=== PATIENT | female | born 1930 | race Native Hawaiian/Other Pacific Islander ===

== ENCOUNTER 2017-12-09 13:58 | Inpatient (IN) | payer OTHER | END 2017-12-21 08:00 | disposition still patient (30) | LOC: PAVB 13:58 | PROVIDERS: ADMIT Internal Medicine ==

== ENCOUNTER 2017-12-09 18:40 | Outpatient (CLI) | payer OTHER | END 2017-12-09 20:00 | disposition home or self-care (01) | LOC: LAB 18:40 | DX: Z16.24 Resistance to multiple antibiotics (principal) | CPT/HCPCS: 87081 ==

== ENCOUNTER 2017-12-10 04:46 | Outpatient (CLI) | payer OTHER ==
[2017-12-10 06:08] LABS: PLATELET COUNT 206 K/uL (152-353)
[2017-12-10 06:26] LABS: POTASSIUM 3.9 mmol/L (3.6-5.2)
== END 2017-12-10 18:11 | disposition home or self-care (01) ==
LOC: LABW 04:46
PROVIDERS: Internal Medicine
DX: I10 Essential (primary) hypertension (principal); E11.9 Type 2 diabetes mellitus without complications; M85.88 Other specified disorders of bone density and structure, other site; M81.0 Age-related osteoporosis without current pathological fracture
CPT/HCPCS: 80053; 80061; 82652; 83036; 85027

== ENCOUNTER 2017-12-11 17:17 | Outpatient (CLI) | payer OTHER | END 2017-12-11 22:59 | disposition home or self-care (01) | LOC: LAB 17:17 | DX: R82.99 Other abnormal findings in urine (principal) | CPT/HCPCS: 81000 ==

== ENCOUNTER 2017-12-21 09:00 | Inpatient (IN) | payer OTHER | END 2018-01-20 09:10 | disposition still patient (30) | LOC: PAVB 09:00 | PROVIDERS: ADMIT Internal Medicine ==

== ENCOUNTER 2018-01-12 13:59 | Outpatient (CLI) | payer OTHER | END 2018-01-12 22:51 | disposition home or self-care (01) | LOC: RAD 13:59 | DX: M17.12 Unilateral primary osteoarthritis, left knee (principal) ==

== ENCOUNTER 2018-01-20 10:17 | Inpatient (IN) | payer OTHER | END 2018-02-20 08:57 | disposition still patient (30) | LOC: PAVB 10:17 | PROVIDERS: ADMIT Internal Medicine ==

== ENCOUNTER 2018-02-20 10:16 | Inpatient (IN) | payer OTHER | END 2018-03-22 15:03 | disposition still patient (30) | LOC: PAVB 10:16 | PROVIDERS: ADMIT Internal Medicine ==

== ENCOUNTER 2018-02-25 06:07 | Outpatient (CLI) | payer OTHER | END 2018-02-25 21:40 | disposition home or self-care (01) | LOC: LAB 06:07 | PROVIDERS: Internal Medicine | DX: E11.9 Type 2 diabetes mellitus without complications (principal); E78.00 Pure hypercholesterolemia, unspecified; I10 Essential (primary) hypertension | CPT/HCPCS: 36415; 82465; 83036; 83721 ==

== ENCOUNTER 2018-03-10 17:26 | Outpatient (CLI) | payer OTHER | END 2018-03-10 22:23 | disposition home or self-care (01) | LOC: LAB 17:26 | DX: R30.0 Dysuria (principal) | CPT/HCPCS: 81000 ==

== ENCOUNTER 2018-03-22 15:58 | Inpatient (IN) | payer OTHER | END 2018-04-22 08:00 | disposition still patient (30) | LOC: PAVB 15:58 | PROVIDERS: ADMIT Internal Medicine ==

== ENCOUNTER 2018-04-22 09:00 | Inpatient (IN) | payer OTHER | END 2018-05-23 10:22 | disposition still patient (30) | LOC: PAVB 09:00 | PROVIDERS: ADMIT Internal Medicine ==

== ENCOUNTER 2018-05-23 10:42 | Inpatient (IN) | payer OTHER | END 2018-06-22 09:38 | disposition still patient (30) | LOC: PAVB 10:42 | PROVIDERS: ADMIT Internal Medicine ==

== ENCOUNTER 2018-05-28 05:51 | Outpatient (CLI) | payer OTHER ==
[2018-05-28 08:16] LABS: PLATELET COUNT 251 K/uL (152-353)
[2018-05-28 08:44] LABS: POTASSIUM 4.3 mmol/L (3.6-5.2)
== END 2018-05-28 23:16 | disposition home or self-care (01) ==
LOC: LAB 05:51
PROVIDERS: Internal Medicine
DX: E11.9 Type 2 diabetes mellitus without complications (principal); I10 Essential (primary) hypertension
CPT/HCPCS: 36415; 80053; 82306; 83036; 85027

== ENCOUNTER 2018-06-22 12:32 | Inpatient (IN) | payer OTHER | END 2018-07-23 08:09 | disposition still patient (30) | LOC: PAVB 12:32 → PAVA 07-20 11:06 | PROVIDERS: ADMIT Internal Medicine ==

== ENCOUNTER 2018-07-23 08:17 | Inpatient (IN) | payer OTHER | END 2018-08-22 08:03 | disposition still patient (30) | LOC: PAVA 08:17 | PROVIDERS: ADMIT Internal Medicine ==

== ENCOUNTER 2018-08-22 08:11 | Inpatient (IN) | payer OTHER | END 2018-09-22 10:19 | disposition still patient (30) | LOC: PAVA 08:11 | PROVIDERS: ADMIT Internal Medicine | CPT/HCPCS: 83036 ==

== ENCOUNTER 2018-08-27 03:27 | Outpatient (CLI) | payer OTHER | END 2018-08-27 23:30 | disposition home or self-care (01) | LOC: LAB 03:27 | DX: E11.9 Type 2 diabetes mellitus without complications (principal) ==

== ENCOUNTER 2018-08-28 09:13 | Outpatient (CLI) | payer OTHER | END 2018-08-28 09:15 | disposition short-term general hospital (02) | LOC: AMB 09:13 | DX: S00.83XA Contusion of other part of head, initial encounter (principal); W18.12XA Fall from or off toilet with subsequent striking against object, initial encounter; Y93.89 Activity, other specified; Y92.012 Bathroom of single-family (private) house as the place of occurrence of the external cause | CPT/HCPCS: A0425; A0429 ==

== ENCOUNTER 2018-08-28 09:27 | Emergency (ER) | payer OTHER ==
[~2018-08-28] VITALS: Ht 160 cm; Wt 105.2 kg
[2018-08-28 15:35] LABS: PLATELET COUNT 273 K/uL (152-353)
[2018-08-28 16:52] VITALS: BP 128/78; TEMP 98.3
== END 2018-08-28 16:52 ==
LOC: ED 09:30
PROVIDERS: Emergency Medicine
PROC: 0KQ10ZZ Repair Facial Muscle, Open Approach (ICD-10-PCS; principal; 2018-08-28)
DX: S01.112A Laceration without foreign body of left eyelid and periocular area, initial encounter (principal); S01.111A Laceration without foreign body of right eyelid and periocular area, initial encounter; S00.83XA Contusion of other part of head, initial encounter; M25.551 Pain in right hip; S09.8XXA Other specified injuries of head, initial encounter; W01.198A Fall on same level from slipping, tripping and stumbling with subsequent striking against other object, initial encounter; Y92.121 Bathroom in nursing home as the place of occurrence of the external cause
CPT/HCPCS: 80053; 82550; 84484; 85027; 93005; 99283

== ENCOUNTER 2018-08-31 13:50 | Outpatient (CLI) | payer OTHER | END 2018-08-31 22:51 | disposition home or self-care (01) | LOC: RAD 13:50 | DX: M25.561 Pain in right knee (principal) ==

== ENCOUNTER 2018-09-22 10:31 | Inpatient (IN) | payer OTHER | END 2018-10-23 14:07 | disposition still patient (30) | LOC: PAVA 10:31 | PROVIDERS: ADMIT Internal Medicine ==

== ENCOUNTER 2018-10-23 14:11 | Inpatient (IN) | payer OTHER ==
[~2018-10-23] VITALS: Ht 160 cm; Wt 127.0 kg
== END 2018-11-20 09:13 | disposition still patient (30) ==
LOC: PAVA 14:11
PROVIDERS: ADMIT Internal Medicine
CPT/HCPCS: J0696

== ENCOUNTER 2018-11-01 16:21 | Outpatient (CLI) | payer OTHER | END 2018-11-01 19:04 | disposition home or self-care (01) | LOC: LAB 16:21 | DX: N39.0 Urinary tract infection, site not specified (principal) | CPT/HCPCS: 87077; 87086; 87088; 87186 ==

== ENCOUNTER 2018-11-03 15:10 | Outpatient (CLI) | payer OTHER ==
[~2018-11-03] VITALS: Ht 160 cm; Wt 127.0 kg
[2018-11-03 15:30] VITALS: BP 124/70; TEMP 98.1
[2018-11-03 16:33] VITALS: BP 146/70; TEMP 97.9
== END 2018-11-03 19:23 | disposition home or self-care (01) ==
LOC: INF 15:10
DX: N39.0 Urinary tract infection, site not specified (principal)
CPT/HCPCS: 96365; J0696

== ENCOUNTER 2018-11-05 08:18 | Outpatient (CLI) | payer OTHER ==
[~2018-11-05] VITALS: Ht 160 cm; Wt 127.0 kg
== END 2018-11-05 20:28 | disposition home or self-care (01) ==
LOC: INF 08:18
DX: N39.0 Urinary tract infection, site not specified (principal)
CPT/HCPCS: 96365; J0696

== ENCOUNTER 2018-11-06 09:45 | Outpatient (CLI) | payer OTHER ==
[~2018-11-06] VITALS: Ht 160 cm; Wt 127.0 kg
[2018-11-06 09:35] VITALS: BP 152/74; TEMP 97.6
[2018-11-06 10:37] VITALS: BP 171/92; TEMP 98.6
== END 2018-11-06 10:50 | disposition home or self-care (01) ==
LOC: INF 09:45
DX: N39.0 Urinary tract infection, site not specified (principal)
CPT/HCPCS: 96365; J0696

== ENCOUNTER 2018-11-07 10:59 | Outpatient (CLI) | payer OTHER | END 2018-11-07 19:32 | disposition home or self-care (01) | LOC: INF 10:59 | DX: N39.0 Urinary tract infection, site not specified (principal) | CPT/HCPCS: 96365; J0696 ==

== ENCOUNTER 2018-11-08 13:24 | Outpatient (CLI) | payer OTHER | END 2018-11-08 19:23 | disposition home or self-care (01) | LOC: INF 13:24 | DX: N39.0 Urinary tract infection, site not specified (principal) | CPT/HCPCS: 96365; J0696 ==

== ENCOUNTER 2018-11-09 08:19 | Outpatient (CLI) | payer OTHER ==
[~2018-11-09] VITALS: Ht 160 cm; Wt 127.0 kg
[2018-11-09 09:40] VITALS: BP 157/61; TEMP 98.4
[2018-11-09 09:50] VITALS: BP 127/82; TEMP 98.6
== END 2018-11-09 10:22 | disposition home or self-care (01) ==
LOC: INF 08:19
DX: N39.0 Urinary tract infection, site not specified (principal)
CPT/HCPCS: 96365; J0696

== ENCOUNTER 2018-11-10 09:21 | Outpatient (CLI) | payer OTHER ==
[~2018-11-10] VITALS: Ht 160 cm; Wt 127.0 kg
[2018-11-10 10:10] VITALS: BP 161/64; TEMP 97.7
[2018-11-10 10:38] VITALS: BP 156/72; TEMP 98.5
== END 2018-11-10 11:20 ==
LOC: INF 09:21
DX: N39.0 Urinary tract infection, site not specified (principal)
CPT/HCPCS: 96365; J0696

== ENCOUNTER 2018-11-11 09:36 | Outpatient (CLI) | payer OTHER ==
[~2018-11-11] VITALS: Ht 160 cm; Wt 127.0 kg
[2018-11-11 10:20] VITALS: BP 173/80; TEMP 98.4
== END 2018-11-11 11:38 | disposition home or self-care (01) ==
LOC: INF 09:36
DX: N39.0 Urinary tract infection, site not specified (principal)
CPT/HCPCS: 96365; J0696

== ENCOUNTER 2018-11-12 09:49 | Outpatient (CLI) | payer OTHER ==
[~2018-11-12] VITALS: Ht 160 cm; Wt 127.0 kg
[2018-11-12 10:00] VITALS: BP 107/60; TEMP 98.7
== END 2018-11-12 11:08 | disposition home or self-care (01) ==
LOC: INF 09:49
DX: N39.0 Urinary tract infection, site not specified (principal)
CPT/HCPCS: 96365; J0696

== ENCOUNTER 2018-11-16 03:49 | Outpatient (CLI) | payer OTHER | END 2018-11-16 19:50 | disposition home or self-care (01) | LOC: LAB 03:49 | DX: N39.0 Urinary tract infection, site not specified (principal) | CPT/HCPCS: 81000 ==

== ENCOUNTER 2018-11-20 09:26 | Inpatient (IN) | payer OTHER | END 2018-12-21 07:50 | disposition still patient (30) | LOC: PAVA 09:26 | PROVIDERS: ADMIT Internal Medicine ==

== ENCOUNTER 2018-11-24 08:34 | Outpatient (CLI) | payer OTHER | END 2018-11-24 23:48 | LOC: CT 08:34 | DX: H35.60 Retinal hemorrhage, unspecified eye (principal); R90.82 White matter disease, unspecified ==

== ENCOUNTER 2018-11-26 07:39 | Outpatient (CLI) | payer OTHER ==
[2018-11-26 08:08] LABS: PLATELET COUNT 262 K/uL (152-353)
== END 2018-11-26 19:32 | disposition home or self-care (01) ==
LOC: LAB 07:39
PROVIDERS: Internal Medicine
DX: I10 Essential (primary) hypertension (principal); E11.9 Type 2 diabetes mellitus without complications; M85.80 Other specified disorders of bone density and structure, unspecified site
CPT/HCPCS: 80053; 80061; 82306; 83036; 85027

== ENCOUNTER 2018-12-15 13:58 | Outpatient (CLI) | payer OTHER | END 2018-12-15 21:11 | disposition home or self-care (01) | LOC: LAB 13:58 | DX: R30.0 Dysuria (principal) | CPT/HCPCS: 81000; 87077; 87086; 87088; 87186 ==

== ENCOUNTER 2018-12-19 16:31 | Outpatient (CLI) | payer OTHER | END 2018-12-19 19:54 | disposition home or self-care (01) | LOC: RAD 16:31 | DX: R09.81 Nasal congestion (principal); R05 Cough ==

== ENCOUNTER 2018-12-21 08:18 | Inpatient (IN) | payer OTHER | END 2019-01-20 09:29 | disposition still patient (30) | LOC: PAVA 08:18 | PROVIDERS: ADMIT Internal Medicine ==

== ENCOUNTER 2018-12-21 15:16 | Outpatient (CLI) | payer OTHER | END 2018-12-21 20:31 | disposition home or self-care (01) | LOC: LAB 15:16 | DX: R82.90 Unspecified abnormal findings in urine (principal); R41.0 Disorientation, unspecified | CPT/HCPCS: 81000 ==

== ENCOUNTER 2018-12-21 22:07 | Outpatient (CLI) | payer OTHER ==
[2018-12-21 23:15] LABS: PLATELET COUNT 281 K/uL (152-353)
[2018-12-21 23:24] LABS: POTASSIUM 4.5 mmol/L (3.6-5.2)
== END 2018-12-21 23:30 | disposition home or self-care (01) ==
LOC: LAB 22:07
PROVIDERS: Internal Medicine
DX: R06.02 Shortness of breath (principal); J06.9 Acute upper respiratory infection, unspecified
CPT/HCPCS: 36415; 80048; 83880; 85027

== ENCOUNTER 2018-12-31 03:57 | Outpatient (CLI) | payer OTHER | END 2018-12-31 21:35 | LOC: LAB 03:57 | DX: N39.0 Urinary tract infection, site not specified (principal) | CPT/HCPCS: 81000 ==

== ENCOUNTER 2019-01-20 10:32 | Inpatient (IN) | payer OTHER | END 2019-02-20 08:11 | disposition still patient (30) | LOC: PAVA 10:32 | PROVIDERS: ADMIT Internal Medicine | DX: Z51.89 Encounter for other specified aftercare (principal) ==

== ENCOUNTER 2019-02-20 08:19 | Inpatient (IN) | payer OTHER | END 2019-03-22 08:25 | disposition still patient (30) | LOC: PAVA 08:19 | PROVIDERS: ADMIT Internal Medicine ==

== ENCOUNTER 2019-02-22 04:19 | Outpatient (CLI) | payer OTHER | END 2019-02-22 19:07 | disposition home or self-care (01) | LOC: LAB 04:19 | DX: E11.9 Type 2 diabetes mellitus without complications (principal) | CPT/HCPCS: 36415; 83036 ==

== ENCOUNTER 2019-03-22 08:48 | Inpatient (IN) | payer OTHER | END 2019-04-22 09:02 | disposition still patient (30) | LOC: PAVA 08:48 | PROVIDERS: ADMIT Internal Medicine ==

== ENCOUNTER 2019-04-22 09:13 | Inpatient (IN) | payer OTHER | END 2019-05-23 15:57 | disposition still patient (30) | LOC: PAVA 09:13 | PROVIDERS: ADMIT Internal Medicine ==

== ENCOUNTER 2019-05-23 16:20 | Inpatient (IN) | payer OTHER | END 2019-06-22 08:03 | disposition still patient (30) | LOC: PAVA 16:20 | PROVIDERS: ADMIT Internal Medicine ==

== ENCOUNTER 2019-05-25 06:05 | Outpatient (CLI) | payer OTHER ==
[2019-05-25 06:43] LABS: PLATELET COUNT 281 K/uL (152-353)
[2019-05-25 06:57] LABS: POTASSIUM 4.3 mmol/L (3.6-5.2); SODIUM 142 mmol/L (136-145)
== END 2019-05-25 22:47 | disposition home or self-care (01) ==
LOC: LAB 06:05
PROVIDERS: Internal Medicine
DX: E11.9 Type 2 diabetes mellitus without complications (principal); I10 Essential (primary) hypertension; M81.0 Age-related osteoporosis without current pathological fracture
CPT/HCPCS: 80053; 82306; 83036; 85027

== ENCOUNTER 2019-06-07 11:41 | Outpatient (CLI) | payer OTHER | END 2019-06-07 20:13 | disposition home or self-care (01) | LOC: RAD 11:41 | DX: J06.9 Acute upper respiratory infection, unspecified (principal) ==

== ENCOUNTER 2019-06-22 08:38 | Inpatient (IN) | payer OTHER | END 2019-07-23 08:30 | disposition still patient (30) | LOC: PAVA 08:38 | PROVIDERS: ADMIT Internal Medicine ==

== ENCOUNTER 2019-07-23 10:37 | Inpatient (IN) | payer OTHER | END 2019-08-22 08:00 | disposition still patient (30) | LOC: PAVA 10:37 | PROVIDERS: ADMIT Internal Medicine ==

== ENCOUNTER 2019-08-22 08:30 | Inpatient (IN) | payer OTHER | END 2019-09-22 07:58 | disposition still patient (30) | LOC: PAVA 08:30 | PROVIDERS: ADMIT Internal Medicine ==

== ENCOUNTER 2019-08-24 05:36 | Outpatient (CLI) | payer OTHER | END 2019-08-24 20:12 | disposition home or self-care (01) | LOC: LAB 05:36 | DX: E11.9 Type 2 diabetes mellitus without complications (principal) | CPT/HCPCS: 83036 ==

== ENCOUNTER 2019-09-22 08:07 | Inpatient (IN) | payer OTHER | END 2019-10-23 09:30 | disposition still patient (30) | LOC: PAVA 08:07 | PROVIDERS: ADMIT Internal Medicine ==

== ENCOUNTER 2019-10-23 09:37 | Inpatient (IN) | payer OTHER | END 2019-11-21 12:43 | disposition still patient (30) | LOC: PAVA 09:37 | PROVIDERS: ADMIT Internal Medicine ==

== ENCOUNTER 2019-11-21 12:52 | Inpatient (IN) | payer OTHER | END 2019-12-22 08:57 | disposition still patient (30) | LOC: PAVA 12:52 | PROVIDERS: ADMIT Internal Medicine ==

== ENCOUNTER 2019-11-24 05:01 | Outpatient (CLI) | payer OTHER ==
[2019-11-24 11:07] LABS: PLATELET COUNT 100 K/uL (152-353)
[2019-11-24 11:19] LABS: POTASSIUM 4.4 mmol/L (3.6-5.2)
== END 2019-11-24 19:26 | disposition home or self-care (01) ==
LOC: LAB 05:01
PROVIDERS: Internal Medicine
DX: I10 Essential (primary) hypertension (principal); E11.9 Type 2 diabetes mellitus without complications; E55.9 Vitamin D deficiency, unspecified
CPT/HCPCS: 80053; 80061; 82306; 83036; 85027

== ENCOUNTER 2019-12-22 09:10 | Inpatient (IN) | payer OTHER | END 2020-01-21 08:01 | disposition still patient (30) | LOC: PAVA 09:10 | PROVIDERS: ADMIT Internal Medicine ==

== ENCOUNTER 2020-01-27 13:36 | Outpatient (CLI) | payer OTHER ==
[2020-01-27 14:05] LABS: PLATELET COUNT 199 K/uL (152-353)
[2020-01-27 14:11] LABS: POTASSIUM 4.2 mmol/L (3.6-5.2)
[2020-01-28] MEDS ORDERED: CARDIZEM60 M1 PO (18:12)
[2020-01-28] MEDS ORDERED: AZIT250T3 PO (18:12)
[2020-01-28] MEDS ORDERED: CELEBREX100 MG PO (18:13)
[2020-01-28] MEDS ORDERED: CLARITIN10 MG PO (18:13)
[2020-01-28] MEDS ORDERED: ALEN70TA19 PO (18:14)
[2020-01-28] MEDS ORDERED: METFORMIN ER1000 MG PO (18:15)
[2020-01-28] MEDS ORDERED: FURO40TA93 PO (18:16)
[2020-01-28] MEDS ORDERED: MIRALAX3350 N1 PO (18:18)
[2020-01-28] MEDS ORDERED: NAMENDA XR28 MG PO (18:19)
[2020-01-28] MEDS ORDERED: MYRBETRIQ50 MG PO (18:19)
[2020-01-28] MEDS ORDERED: MULT VITAMI1 PO (18:20)
[2020-01-28] MEDS ORDERED: MONT10TA PO ×2 (18:20→18:21)
[2020-01-28] MEDS ORDERED: LISI20TA11 PO (18:22)
[2020-01-28] MEDS ORDERED: APIX1TAB PO (18:23)
[2020-01-28] MEDS ORDERED: HYDR200T3 PO (18:24)
[2020-01-28] MEDS ORDERED: CLON0.1T16 PO (18:25)
[2020-01-28] MEDS ORDERED: LABETALOL100 MG PO (18:26)
[2020-01-28] MEDS ORDERED: ASA LOW DOSE81 MG PO (18:27)
== END 2020-01-27 20:11 | disposition home or self-care (01) ==
LOC: LAB 13:36
PROVIDERS: Internal Medicine
DX: U07.1 COVID-19 (principal); Z79.899 Other long term (current) drug therapy
CPT/HCPCS: 36415; 80053; 85027; 85379; 86140

== ENCOUNTER 2020-01-28 12:58 | Inpatient (IN) | payer OTHER ==
[~2020-01-28] VITALS: Ht 165.1 cm; Wt 97.2 kg
[2020-01-28] VITALS (11 sets, daily range): BP systolic 103–159; BP diastolic 38–64; TEMP 98.1–99.5; Ht 165.1 cm; Wt 97.2 kg
[2020-01-28 13:23] LABS: PLATELET COUNT 239 K/uL (152-353)
[2020-01-28 13:43] LABS: POTASSIUM 4.3 mmol/L (3.6-5.2); SODIUM 144 mmol/L (136-145)
[2020-01-28] MEDS ORDERED: CARDIZEM60 M1 PO (18:12)
[2020-01-28] MEDS ORDERED: AZIT250T3 PO (18:12)
[2020-01-28] MEDS ORDERED: CLARITIN10 MG PO (18:13)
[2020-01-28] MEDS ORDERED: CELEBREX100 MG PO (18:13)
[2020-01-28] MEDS ORDERED: ALEN70TA19 PO (18:14)
[2020-01-28] MEDS ORDERED: METFORMIN ER1000 MG PO (18:15)
[2020-01-28] MEDS ORDERED: FURO40TA93 PO (18:16)
[2020-01-28] MEDS ORDERED: MIRALAX3350 N1 PO (18:18)
[2020-01-28] MEDS ORDERED: NAMENDA XR28 MG PO (18:19)
[2020-01-28] MEDS ORDERED: MYRBETRIQ50 MG PO (18:19)
[2020-01-28] MEDS ORDERED: MULT VITAMI1 PO (18:20)
[2020-01-28] MEDS ORDERED: MONT10TA PO ×2 (18:20→18:21)
[2020-01-28] MEDS ORDERED: LISI20TA11 PO (18:22)
[2020-01-28] MEDS ORDERED: APIX1TAB PO (18:23)
[2020-01-28] MEDS ORDERED: HYDR200T3 PO (18:24)
[2020-01-28] MEDS ORDERED: CLON0.1T16 PO (18:25)
[2020-01-28] MEDS ORDERED: LABETALOL100 MG PO (18:26)
[2020-01-28] MEDS ORDERED: ASA LOW DOSE81 MG PO (18:27)
[2020-01-29] VITALS (24 sets, daily range): BP systolic 112–195; BP diastolic 51–85; TEMP 97.6–100.2
[2020-01-29 09:38] LABS: POTASSIUM 4.4 mmol/L (3.6-5.2)
[2020-01-29 09:52] LABS: PLATELET COUNT 225 K/uL (152-353)
[2020-01-30] VITALS (24 sets, daily range): BP systolic 95–189; BP diastolic 42–92; TEMP 98.7–99.9
[2020-01-30 06:06] LABS: POTASSIUM 4.6 mmol/L (3.6-5.2)
[2020-01-30 06:17] LABS: PLATELET COUNT 257 K/uL (152-353)
[2020-01-31] VITALS (24 sets, daily range): BP systolic 87–170; BP diastolic 43–111; TEMP 97.9–101.5
[2020-01-31 06:06] LABS: PLATELET COUNT 363 K/uL (152-353)
[2020-01-31 06:19] LABS: POTASSIUM 4.4 mmol/L (3.6-5.2)
[2020-02-01] VITALS (23 sets, daily range): BP systolic 96–132; BP diastolic 24–65; TEMP 96.8–98.8
[2020-02-01 06:12] LABS: PLATELET COUNT 344 K/uL (152-353)
[2020-02-02] VITALS: BP 99/48
[2020-02-02 01:00] VITALS: BP 107/53
== END 2020-02-02 04:45 | disposition expired | DRG 177 ==
LOC: ED 12:58 → PCU 16:05
PROVIDERS: Internal Medicine Endocrinology, Diabetes & Metabolism; ADMIT Family Medicine
DX: U07.1 COVID-19 (principal); J18.8 Other pneumonia, unspecified organism; J96.01 Acute respiratory failure with hypoxia; N17.9 Acute kidney failure, unspecified; E78.49 Other hyperlipidemia; F03.90 Unspecified dementia, unspecified severity, without behavioral disturbance, psychotic disturbance, mood disturbance, and anxiety; E66.01 Morbid (severe) obesity due to excess calories; E11.22 Type 2 diabetes mellitus with diabetic chronic kidney disease; I12.9 Hypertensive chronic kidney disease with stage 1 through stage 4 chronic kidney disease, or unspecified chronic kidney disease; N18.3 Chronic kidney disease, stage 3 (moderate); I46.9 Cardiac arrest, cause unspecified
CPT/HCPCS: 36415; 36600; 80053; 81000; 82550; 82553; 82805; 84484; 85007; 85027; 85379; 87077; 87086; 87088; 87186; 93005; 94760; 99284; J1956; J0132; J0360; J1335; J1650; J1940; J2060; J2175; J2270; J2405